=== PATIENT | female | born 1960 | race Caucasian/White ===

== ENCOUNTER 2022-04-04 10:36 | Emergency (ER) | payer BC ==
[2022-04-04] MEDS ORDERED: HYDROmorphone 0.5 MG/0.5 ML Syringe IM ONE (11:56)
[2022-04-04] MEDS ORDERED: Orphenadrine 100 MG Tab.ER PO ONE (11:56)
== END 2022-04-04 13:39 | disposition home or self-care (01) ==
LOC: JD.ED 10:36
DX: S00.81XA Abrasion of other part of head, initial encounter (principal); R07.9 Chest pain, unspecified; I10 Essential (primary) hypertension; E03.9 Hypothyroidism, unspecified; Z79.899 Other long term (current) drug therapy; W01.0XXA Fall on same level from slipping, tripping and stumbling without subsequent striking against object, initial encounter
CPT/HCPCS: 70450; 71111; 96372; 99283; A9270; J1170